=== PATIENT | female | born 1965 | race Caucasian/White ===

== ENCOUNTER 2016-07-24 15:29 | Emergency (ER) | payer MEDICAID, OTHER ==
[~2016-07-24 15:29] MED LIST: EMTRICITABINE/TENOFOVIR 200MG/300MG TAB PO SCH; RALTEGRAVIR 400 MG TAB PO SCH
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
[2016-07-24] MEDS ORDERED: LORazepam 1 MG TAB PO ONE (16:19)
[2016-07-24] MEDS ORDERED: ONDANSETRON 4 MG/2 ML VIAL ONE (16:41)
[2016-07-24 16:51] LABS: % IMMATURE GRANULYOCYTES 0.4 % (0.0-1.1); ABSOLUTE IMMATURE GRANULOCYTES 0.05 10^3/uL (0.00-0.10); ADD DIFF? NO; ADD MORPH? NO; ADD SCAN? NO; ATYPICAL LYMPHOCYTE FLAG 0 (0-99); FRAGMENT RBC FLAG 0 (0-99); HEMOGLOBIN 13.8 g/dL (12.6-16.3); LEFT SHIFT FLG 0 (0-99); LIPEMIA HEMOLYSIS FLAG 90 (0-99); MEAN CELL HEMOGLOBIN 30.1 pg (27.9-34.1); MEAN CELL HEMOGLOBIN CONCENTR. 34.5 g/dL (32.4-36.7); MEAN CELL VOLUME 87.3 fL (81.5-99.8); MEAN PLATELET VOLUME 9.7 fL (8.7-11.7); PLATELET CLUMPS FLAG 10 (0-99); PLATELET COUNT 431 10^3/uL (150-400); RED BLOOD CELL COUNT 4.58 10^6/uL (4.18-5.33); RED CELL DISTRIBUTION WIDTH 13.2 % (11.5-15.2)
[2016-07-24] MEDS ORDERED: ONDANSETRON 4 MG/2 ML VIAL IVP ONE (16:53)
[2016-07-24 17:21] LABS: ANION GAP 18 mEq/L (8-16); CALCIUM 10.1 mg/dL (8.5-10.4); CARBON DIOXIDE 27 mEq/l (22-31); CHLORIDE 100 mEq/L (97-110); CREATININE 0.6 mg/dL (0.6-1.0); ETHANOL SERUM 246 mg/dL (0-10); GLOMERULAR FILTRATION RATE > 60; GLUCOSE 96 mg/dL (70-100); POTASSIUM 3.2 mEq/L (3.5-5.2); SODIUM 145 mEq/L (134-144)
[2016-07-24 17:43] LABS: LEUKOCYTE ESTERASE,URINE TRACE (NEGATIVE); NITRITE,URINE NEGATIVE (NEGATIVE)
[2016-07-24 17:51] LABS: COLOR AMBER
[2016-07-24 17:56] VITALS: BP 157/136; PULSE 124; RESP 24; TEMP 98.2; O2SAT 91
[2016-07-24] MEDS ORDERED: CEFTRIAXONE IM 350 MG/ML SYRINGE IM ONE (18:17)
[2016-07-24] MEDS ORDERED: AZITHROMYCIN 250 MG TAB PO ONE (18:17)
[2016-07-24] MEDS ORDERED: ONDANSETRON DISINTEGRATING 4 MG TAB PO ONE (18:17)
[2016-07-24] MEDS ORDERED: ULIPRISTAL ACETATE 30 MG TAB PO ONE (18:17)
[2016-07-24] MEDS ORDERED: RALTEGRAVIR 400 MG TAB PO ONE ×2 (18:37→19:02)
[2016-07-24 18:50] LABS: ALBUMIN 4.6 g/dL (3.5-5.0); BILIRUBIN,TOTAL 0.6 mg/dL (0.1-1.4); BILIRUBIN-CONJUGATED 0.4 mg/dL (0.0-0.5); BILIRUBIN-UNCONJUGATED 0.2 mg/dL (0.0-1.1); TOTAL PROTEIN 7.9 g/dL (6.3-8.2)
[2016-07-24] MEDS ORDERED: EMTRICITABINE/TENOFOVIR 200MG/300MG TAB PO ONE (19:02)
[2016-07-24] MEDS ORDERED: TDAP ADULT 0.5 ML INJ (BOOSTRIX) IM ONE ×2 (19:55→22:00)
[2016-07-25] MEDS ORDERED: EMTRICITABINE/TENOFOVIR 200MG/300MG TAB PO ONE (18:38)
== END 2016-07-24 22:32 | disposition home or self-care (01) ==
LOC: EEVIPCON 15:29
DX: T74.21XA Adult sexual abuse, confirmed, initial encounter (principal); J45.909 Unspecified asthma, uncomplicated; I10 Essential (primary) hypertension; Z90.49 Acquired absence of other specified parts of digestive tract; Z23 Encounter for immunization; Y07.9 Unspecified perpetrator of maltreatment and neglect; Y92.89 Other specified places as the place of occurrence of the external cause; Y93.89 Activity, other specified
CPT/HCPCS: 96374; G0480; J0696; J2405

== ENCOUNTER 2016-07-26 19:11 | Emergency (ER) | payer MEDICAID ==
[2016-07-26 19:24] VITALS: RESP 16
[2016-07-26] MEDS ORDERED: OXYCODONE/APAP 5/325 TAB PO ONE (20:04)
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
[2016-07-26] MEDS ORDERED: ONDANSETRON DISINTEGRATING 4 MG TAB PO ONE (20:46)
[2016-07-26] MEDS ORDERED: OXYCODONE/APAP 5/325MG PREPACK#4 BTL TAKEHOME ONE (21:50)
[2016-07-26 22:10] VITALS: BP 151/87; PULSE 90; TEMP 98.1; O2SAT 95
== END 2016-07-26 22:25 | disposition home or self-care (01) ==
DX: M25.552 Pain in left hip (principal); F41.9 Anxiety disorder, unspecified; J45.909 Unspecified asthma, uncomplicated

== ENCOUNTER 2016-08-11 22:54 | Emergency (ER) | payer MEDICAID ==
[2016-08-11 23:10] VITALS: RESP 20
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
[2016-08-12] MEDS ORDERED: IBUPROFEN 200 MG TAB PO ONE (00:15)
[2016-08-12] MEDS ORDERED: ACETAMINOPHEN 500 MG TAB PO ONE (00:15)
[2016-08-12 00:58] VITALS: BP 113/67; PULSE 78; TEMP 98.1; O2SAT 94
== END 2016-08-12 00:58 | disposition home or self-care (01) ==
LOC: EDUNIT#
DX: S00.81XA Abrasion of other part of head, initial encounter (principal); F10.120 Alcohol abuse with intoxication, uncomplicated; J45.909 Unspecified asthma, uncomplicated; W19.XXXA Unspecified fall, initial encounter

== ENCOUNTER 2016-11-04 20:45 | Emergency (ER) | payer MEDICAID ==
[2016-11-04 21:03] VITALS: BP 113/74; PULSE 95; RESP 20; TEMP 98.2; O2SAT 97
[2016-11-04] MEDS ORDERED: IBUPROFEN 600 MG TAB PO ONE (21:34)
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
[2016-11-04] MEDS ORDERED: HYDROCODONE/APAP 5/325 TAB PO ONE (22:44)
[2016-11-04] MEDS ORDERED: ULIPRISTAL ACETATE 30 MG TAB PO ONE (22:45)
[2016-11-04] MEDS ORDERED: ACETAMINOPHEN 500 MG TAB PO ONE (22:45)
[2016-11-04] MEDS ORDERED: ONDANSETRON DISINTEGRATING 4 MG TAB PO ONE (22:45)
[2016-11-04] MEDS ORDERED: CEFTRIAXONE IM 350 MG/ML SYRINGE IM ONE (22:45)
[2016-11-04] MEDS ORDERED: AZITHROMYCIN 250 MG TAB PO ONE (22:45)
== END 2016-11-05 00:20 | disposition home or self-care (01) ==
LOC: EEVIPCON 20:45
DX: T74.21XA Adult sexual abuse, confirmed, initial encounter (principal)
CPT/HCPCS: J0696

== ENCOUNTER 2016-12-31 18:11 | Emergency (ER) | payer MEDICAID ==
--- NOTE | 2016-12-31 18:43 | EDPHY ---
H & P Smoking Status: Never smoked Time Seen by Provider: 12/31/16 18:38 HPI/ROS: CHIEF COMPLAINT: "My potassium is too low" HISTORY OF PRESENT ILLNESS: 51-year-old female had blood drawn yesterday at [facility] was noted to have a level of 3.2 told to come to the ER for potassium supplementation, needs to have a potassium of 3.5 in order to return to [facility], according to the patient. She has history of daily potassium supplementation, took a double dose today. She denies recent vomiting or diarrhea. No abdominal pain. He is complaining of chronic fatigue. PHYSICAL EXAM (Prior to examination, patient consented to physical exam, hands were washed and my usual and customary physical exam procedures followed) 1) GENERAL: Well-developed, well-nourished, alert and oriented. Appears to be in no acute distress. 2) HEAD: Normocephalic 3) HEENT: sclera anicteric 4) LUNGS: Breathing comfortably. Lungs clear bilaterally. (Jodi Masters Sravanthi) Constitutional: Initial Vital Signs Temperature (C) 37 C 12/31/16 18:21 Heart Rate 109 H 12/31/16 18:21 Respiratory Rate 18 12/31/16 18:21 Blood Pressure 117/98 H 12/31/16 18:21 O2 Sat (%) 95 12/31/16 18:21 O2 Delivery Mode Room Air Allergies/Adverse Reactions: adhesive tape Allergy (Verified 11/04/16 20:54) Sulfa (Sulfonamide Antibiotics) Allergy (Verified 11/04/16 20:54) Home Medications: Medication Instructions Recorded Ibuprofen 800 mg PO Q6-8PRN PRN #30 tablet 07/26/16 Amitriptyline HCl 12/31/16 Gabapentin 12/31/16 HCTZ (*) 12/31/16 Klor-Con M20 12/31/16 Omeprazole 12/31/16 Prazosin HCl 12/31/16 traMADol 12/31/16 traZODone 12/31/16 MDM/Departure - MDM Medications Given: Discontinued Medications Potassium Chloride (Potassium Chloride Oral Liquid) 20 meq PO EDNOW ONE Stop: 12/31/16 19:20 Last Admin: 12/31/16 20:12 Dose: Not Given Potassium Chloride (Klor Packets) 40 meq PO EDNOW ONE Stop: 12/31/16 19:28 Last Admin: 12/31/16 19:34 Dose: 40 meq ED Course/Re-evaluation: Patient informs me that [facility] not accept her on a she has a documented potassium of at least 3.5. . The patient was given supplementation of potassium, had laboratory recheck with potassium 3.8. She will be discharged to go back to [facility]. (Jodi Masters) The patient was evaluated and managed by the physician medical assistant ob gyn. I have reviewed this chart and I agree with the findings and plan of care as documented , as indicated by my signature. I am the secondary supervising physician. ( Rosalia Osorio) - Depart Disposition: Home, Routine, Self-Care Clinical Impression: Hypokalemia Condition: Good Instructions: Hypokalemia (ED) Referrals: RAJAN AVALOS MD [Other] - 1 day without fail
[2016-12-31 18:47] VITALS: RESP 18; TEMP 98.6
[2016-12-31 19:09] LABS: ANION GAP 16 mEq/L (8-16); CARBON DIOXIDE 27 mEq/l (22-31); CHLORIDE 96 mEq/L (97-110); CREATININE 0.8 mg/dL (0.6-1.0); GLOMERULAR FILTRATION RATE > 60; GLUCOSE 91 mg/dL (70-100); POTASSIUM 3.2 mEq/L (3.5-5.2); SODIUM 139 mEq/L (134-144)
[2016-12-31] MEDS ORDERED: POTASSIUM CL 20 MEQ/15 ML UDCUP PO ONE (19:19)
[2016-12-31] MEDS ORDERED: POTASSIUM CL 20 MEQ PKT PO ONE (19:27)
[2016-12-31 21:02] LABS: ANION GAP 12 mEq/L (8-16); CALCIUM 9.8 mg/dL (8.5-10.4); CARBON DIOXIDE 27 mEq/l (22-31); CHLORIDE 98 mEq/L (97-110); CREATININE 0.7 mg/dL (0.6-1.0); GLOMERULAR FILTRATION RATE > 60; GLUCOSE 99 mg/dL (70-100); POTASSIUM 3.8 mEq/L (3.5-5.2); SODIUM 137 mEq/L (134-144)
[2016-12-31 21:31] VITALS: BP 122/93; PULSE 99; O2SAT 94
== END 2016-12-31 21:48 | disposition home or self-care (01) ==
LOC: EDUNIT#
DX: E87.6 Hypokalemia (principal)
CPT/HCPCS: 82947-QW

== ENCOUNTER 2017-01-02 13:51 | Emergency (ER) | payer MEDICAID ==
[2017-01-02 14:16] VITALS: TEMP 98.6
--- NOTE | 2017-01-02 14:54 | EDPHY ---
H & P Stated Complaint: referred by [facility] for hypokalemia, has diarrhea Time Seen by Provider: 01/02/17 14:53 HPI/ROS: CHIEF COMPLAINT: Referred to ED for hypokalemia HISTORY OF PRESENT ILLNESS: The patient is referred to the emergency department for hypokalemia. She was seen in the ED 2 days ago and received potassium supplementation. She has a history of chronic hyponatremia. By report she has to have a potassium greater than 3.8 to be at [facility]. [facility] is concerned that the patient may have recurrent hypokalemia. She likely is taking 40 mEq of potassium a day 2 days prior to arrival. She has not yet have potassium supplementation today. The patient denies any additional acute complaints aside from mild chronic diarrhea. The patient does take hydrochlorothiazide for hypertension. REVIEW OF SYSTEMS: A comprehensive 10 point review of systems is otherwise negative aside from elements mentioned in the history of present illness. Source: Patient Exam Limitations: No limitations - Personal History LMP (Females 10-55): Unknown Current Tetanus/Diphtheria Vaccine: Unsure Current Tetanus Diphtheria and Acellular Pertussis (TDAP): Unsure Tetanus Vaccine Date: 06/2016 - Medical/Surgical History Hx Asthma: Yes Hx Chronic Respiratory Disease: No Hx Diabetes: No Hx Cardiac Disease: No Hx Renal Disease: No Hx Cirrhosis: No Hx Alcoholism: No Hx HIV/AIDS: No Hx Splenectomy or Spleen Trauma: No Other PMH: PMHx: endometriosis, goiter corrected with surgery at age 15. PSHx: R hip, R knee, gallbladder. HTN, GERD - Social History Smoking Status: Never smoked - Physical Exam Exam: General Appearance: Alert, no distress Eyes: Pupils equal and round no pallor or injection ENT, Mouth: Mucous membranes moist Respiratory: There are no retractions, lungs are clear to auscultation Cardiovascular: Regular rate and rhythm Gastrointestinal: Abdomen is soft and nontender, no masses, bowel sounds normal Neurological: A&O, normal motor function, normal sensory exam, normal cranial nerves Skin: Warm and dry, no rashes Musculoskeletal: Neck is supple nontender Extremities: symmetrical, full range of motion Constitutional: Initial Vital Signs Temperature (C) 37.0 C 01/02/17 14:14 Heart Rate 106 H 01/02/17 14:14 Respiratory Rate 18 01/02/17 14:14 Blood Pressure 127/89 H 01/02/17 14:14 O2 Sat (%) 98 01/02/17 14:14 O2 Delivery Mode Room Air Allergies/Adverse Reactions: adhesive tape Allergy (Verified 11/04/16 20:54) Sulfa (Sulfonamide Antibiotics) Allergy (Verified 11/04/16 20:54) Home Medications: Medication Instructions Recorded Ibuprofen 800 mg PO Q6-8PRN PRN #30 tablet 07/26/16 Amitriptyline HCl 12/31/16 Gabapentin 12/31/16 HCTZ (*) 12/31/16 Klor-Con M20 12/31/16 Omeprazole 12/31/16 Prazosin HCl 12/31/16 traMADol 12/31/16 traZODone 12/31/16 Medical Decision Making ED Course/Re-evaluation: The patient's initial potassium was checked and found to be 3.0. The patient has no acute medical complaints. The patient received her usual daily dose of potassium which was 40 mEq. Potassium was recheck and found to be 3.5. The patient should continue 40 mEq of potassium on a daily basis. The patient is advised to return to the emergency department for the development of any specific symptoms, fever or other concerns. The patient will follow up with her regular physician as scheduled. Differential Diagnosis: Differential diagnosis considered includes hypokalemia, dehydration, medication side effect - Data Points Laboratory Results: 01/02/17 01/02/17 17:34 15:10 POC Hgb 13.9 gm/dL gm/dL 13.9 gm/dL gm/dL (12.6-16.3) (12.6-16.3) POC Hct 41 % % 41 % % (38-47) (38-47) POC Sodium 141 mEq/L mEq/L 141 mEq/L mEq/L (134-144) (134-144) POC Potassium 3.5 mEq/L mEq/L 3.0 mEq/L L mEq/L (3.3-5.0) (3.3-5.0) POC Chloride 97 mEq/L mEq/L 97 mEq/L mEq/L (97-110) (97-110) POC BUN 16 mg/dL mg/dL 18 mg/dL mg/dL (7-23) (7-23) POC Creatinine 0.8 mg/dL mg/dL 0.7 mg/dL mg/dL (0.6-1.0) (0.6-1.0) POC Glucose 84 mg/dL mg/dL 104 mg/dL H mg/dL (70-100) (70-100) Medications Given: Discontinued Medications Potassium Chloride (Klor Packets) 50 meq PO EDNOW ONE Stop: 01/02/17 15:27 Last Admin: 01/02/17 15:34 Dose: 40 meq Point of Care Test Results: 01/02/17 01/02/17 15:10 17:34 POC Sodium 141 141 POC Potassium 3.0 L 3.5 POC Chloride 97 97 POC BUN 18 16 POC Creatinine 0.7 0.8 POC Glucose 104 H 84 Departure - Departure Disposition: Home, Routine, Self-Care Clinical Impression: Hypokalemia Condition: Good Instructions: Hypokalemia (ED) Additional Instructions: 1. Your potassium level was normal after you received your normal daily dose of potassium. Please continue taking 40 mEq on a daily basis. 2. Please follow up with your regular physician as scheduled. 3. Please return to the ED for the development of any acute concerns. Referrals: POLLY LINDSAY [Other] - As per Instructions
[2017-01-02] MEDS: POTASSIUM CL 20 MEQ PKT PO ONE (15:34)
[2017-01-02 17:55] VITALS: BP 122/91; PULSE 97; RESP 16; O2SAT 94
== END 2017-01-02 18:20 | disposition home or self-care (01) ==
LOC: EEVIPCON 13:51
DX: E87.6 Hypokalemia (principal); I10 Essential (primary) hypertension; J45.909 Unspecified asthma, uncomplicated
CPT/HCPCS: 82947-QW

== ENCOUNTER 2017-07-01 21:50 | Emergency (ER) | payer MEDICAID ==
[2017-07-01] MEDS ORDERED: PREGABALIN 75 MG CAP PO ONE (23:28)
[2017-07-01] MEDS ORDERED: LIDOCAINE 4%/MENTHOL 1% PATCH TD ONE ×3 (23:30→23:53)
[2017-07-02] MEDS ORDERED: PREGABALIN 75 MG CAP PO ONE (00:11)
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
[2017-07-02 00:44] VITALS: BP 101/64
[2017-07-02] MEDS ORDERED: PATCH REMOVAL 1 EA PATCH TD SCH ×2 (21:00)
== END 2017-07-02 00:46 | disposition home or self-care (01) ==
DX: M54.9 Dorsalgia, unspecified (principal); I10 Essential (primary) hypertension; J45.909 Unspecified asthma, uncomplicated

== ENCOUNTER 2017-07-17 16:18 | Emergency (ER) | payer MEDICAID ==
[2017-07-17 17:02] LABS: PLATELET COUNT 380 10^3/uL (150-400)
[2017-07-17] MEDS ORDERED: NS 1,000 ML IV ONE ×2 (17:05)
--- NOTE | 2017-07-17 17:05 | EDPHY ---
H & P Stated Complaint: diarrhea, SOB Time Seen by Provider: 07/17/17 16:30 HPI/ROS: CHIEF COMPLAINT: Multiple complaints including diarrhea, shortness of breath and chronic back pain HISTORY OF PRESENT ILLNESS: Patient presents to the ED with complaints of shortness of breath and presyncope. She reports the symptoms began after visiting a friend in an apartment who was smoking. She attributed her dyspnea initially to an exacerbation of her asthma. The patient reports she has also had a 1 day history of diarrhea. She has also been struggling with chronic back pain from scoliosis and a reported degenerative condition of her hip. The patient denies any cough or congestion. She denies fever. She denies pleuritic chest pain. She denies asymmetric calf pain or swelling. REVIEW OF SYSTEMS: A comprehensive 10 point review of systems is otherwise negative aside from elements mentioned in the history of present illness. Source: Patient Exam Limitations: No limitations - Personal History LMP (Females 10-55): Unknown Tetanus Vaccine Date: 06/2016 - Medical/Surgical History Hx Asthma: Yes Hx Chronic Respiratory Disease: No Hx Diabetes: No Hx Cardiac Disease: No Hx Renal Disease: No Hx Cirrhosis: No Hx Alcoholism: No Hx HIV/AIDS: No Hx Splenectomy or Spleen Trauma: No Other PMH: PMHx: endometriosis, TBI, ASTHMA, GERD, Scoliosis,. PSHx: R hip, R knee, jasmine - Social History Smoking Status: Never smoked - Physical Exam Exam: General Appearance: Alert, no distress Eyes: Pupils equal and round no pallor or injection ENT, Mouth: Mucous membranes moist Respiratory: There are no retractions, lungs are clear to auscultation Cardiovascular: Regular rate and rhythm Gastrointestinal: Abdomen is soft and nontender, no masses, bowel sounds normal Neurological: 5/5 strength noted all 4 extremities Skin: Warm and dry, no rashes Musculoskeletal: Tenderness to palpation throughout the paraspinal muscles Extremities: symmetrical, full range of motion Constitutional: Initial Vital Signs Temperature (C) 37.1 C 07/17/17 16:35 Heart Rate 84 07/17/17 16:35 Respiratory Rate 26 H 07/17/17 16:35 Blood Pressure 132/82 H 07/17/17 16:35 O2 Sat (%) 100 07/17/17 16:35 O2 Delivery Mode Room Air Allergies/Adverse Reactions: adhesive tape Allergy (Verified 11/04/16 20:54) Sulfa (Sulfonamide Antibiotics) Allergy (Verified 11/04/16 20:54) Home Medications: Medication Instructions Recorded Ibuprofen 800 mg PO Q6-8PRN PRN #30 tablet 07/26/16 Gabapentin 12/31/16 HCTZ (*) 12/31/16 Klor-Con M20 12/31/16 Omeprazole 12/31/16 traMADol 12/31/16 traZODone 12/31/16 Lidocaine [Lidoderm] 1 each TP DAILY #10 adh..patch 07/02/17 Pregabalin [Lyrica 75mg (*)] 75 mg PO BID #30 cap 07/02/17 Medical Decision Making ED Course/Re-evaluation: The patient presents to the ED with resolved shortness of breath, weakness and chronic back pain. Much of the patient's problem surround the fact that she is currently homeless. It sounds as if the house that she is currently living in is also skull have a dated with residence suffering from psychiatric disease and possibly substance abuse. Regarding the patient's medical state. While she does have diarrhea her vital signs are stable and she has been rehydrated. She has no evidence of a significant leukocytosis or metabolic derangement. The patient was observed in the emergency department. She is ambulatory. The patient is quite upset about the fact that she is currently homeless. Patient is not interested in in going to the [facility]. At this point time the patient will be discharged from the emergency department. She is advised to continue to follow up with her primary care provider for her back pain. Differential Diagnosis: Differential diagnosis considered includes dehydration, metabolic abnormality, infectious diarrhea, asthma exacerbation - Data Points Laboratory Results: Laboratory Results 07/17/17 16:15 07/17/17 16:15 07/17/17 07/17/17 16:15 16:15 WBC 7.00 10^3/uL 10^3/uL (3.80-9.50) RBC 4.83 10^6/uL 10^6/uL (4.18-5.33) Hgb 13.3 g/dL g/dL (12.6-16.3) Hct 39.9 % % (38.0-47.0) MCV 82.6 fL fL (81.5-99.8) MCH 27.5 pg L pg (27.9-34.1) MCHC 33.3 g/dL g/dL (32.4-36.7) RDW 14.7 % % (11.5-15.2) Plt Count 380 10^3/uL 10^3/uL (150-400) MPV 9.9 fL fL (8.7-11.7) Neut % (Auto) 75.0 % H % (39.3-74.2) Lymph % (Auto) 18.4 % % (15.0-45.0) Simpson % (Auto) 5.6 % % (4.5-13.0) Eos % (Auto) 0.1 % L % (0.6-7.6) Baso % (Auto) 0.6 % % (0.3-1.7) Nucleat RBC Rel Count 0.0 % % (0.0-0.2) Absolute Neuts (auto) 5.25 10^3/uL 10^3/uL (1.70-6.50) Absolute Lymphs (auto) 1.29 10^3/uL 10^3/uL (1.00-3.00) Absolute Monos (auto) 0.39 10^3/uL 10^3/uL (0.30-0.80) Absolute Eos (auto) 0.01 10^3/uL L 10^3/uL (0.03-0.40) Absolute Basos (auto) 0.04 10^3/uL 10^3/uL (0.02-0.10) Absolute Nucleated RBC 0.00 10^3/uL 10^3/uL (0-0.01) Immature Gran % 0.3 % % (0.0-1.1) Immature Gran # 0.02 10^3/uL 10^3/uL (0.00-0.10) Sodium 145 mEq/L mEq/L (135-145) Potassium 3.7 mEq/L mEq/L (3.5-5.2) Chloride 108 mEq/L mEq/L (97-110) Carbon Dioxide 28 mEq/l mEq/l (22-31) Anion Gap 9 mEq/L mEq/L (8-16) BUN 17 mg/dL mg/dL (7-23) Creatinine 0.7 mg/dL mg/dL (0.6-1.0) Estimated GFR > 60 Glucose 101 mg/dL H mg/dL (70-100) Calcium 10.1 mg/dL mg/dL (8.5-10.4) Medications Given: Discontinued Medications Sodium Chloride (Ns) 1,000 mls @ 0 mls/hr IV EDNOW ONE; Wide Open PRN Reason: Protocol Stop: 07/17/17 17:06 Last Admin: 07/17/17 17:15 Dose: 1,000 mls Sodium Chloride (Ns) 1,000 mls @ 0 mls/hr IV EDNOW ONE; Wide Open PRN Reason: Protocol Stop: 07/17/17 17:06 Last Admin: 07/17/17 17:15 Dose: 1,000 mls Ondansetron HCl (Zofran) 4 mg IVP EDNOW ONE Stop: 07/17/17 17:56 Last Admin: 07/17/17 18:01 Dose: 4 mg Departure - Departure Disposition: Home, Routine, Self-Care Clinical Impression: Diarrhea, Asthma, Chronic pain Condition: Good Instructions: Back Pain (ED) Additional Instructions: 1. Please continue to work with your primary care provider for evaluation and management of your back pain. 2. Continue albuterol as prescribed for your asthma.
[2017-07-17] MEDS ORDERED: ONDANSETRON 4 MG/2 ML VIAL IVP ONE (17:55)
[2017-07-17] MEDS ORDERED: ONDANSETRON 4 MG/2 ML VIAL ONE (17:56)
[2017-07-17] MEDS ORDERED: IBUPROFEN 600 MG TAB PO ONE (17:56)
[2017-07-17 18:39] VITALS: BP 122/78
== END 2017-07-17 19:24 | disposition home or self-care (01) ==
LOC: EDUNIT#
DX: R19.7 Diarrhea, unspecified (principal); J45.909 Unspecified asthma, uncomplicated; M54.9 Dorsalgia, unspecified; G89.29 Other chronic pain; E86.9 Volume depletion, unspecified
CPT/HCPCS: 96374; J2405